=== PATIENT | female | born 1990 | race Caucasian/White ===

== ENCOUNTER → 2024-12-16 14:35 | Outpatient (REF) | payer OTHER, SELFPAY | LOC: RAD 14:35 | PROVIDERS: ATTENDING PHYSICIAN Nurse Practitioner Family; FAMILY PHYSICIAN Internal Medicine | DX: Z34.91 Encounter for supervision of normal pregnancy, unspecified, first trimester (principal) | CPT/HCPCS: 76801; 76817 ==

== ENCOUNTER → 2025-01-08 14:38 | Outpatient (REF) | payer OTHER, SELFPAY | LOC: PNTC 14:38 | PROVIDERS: ATTENDING PHYSICIAN Student in an Organized Health Care Education/Training Program | DX: Z36.0 Encounter for antenatal screening for chromosomal anomalies (principal); Z36.82 Encounter for antenatal screening for nuchal translucency | CPT/HCPCS: 76801; 76813 ==

== ENCOUNTER → 2025-02-03 14:40 | Outpatient (REF) | payer OTHER, SELFPAY | LOC: PNTC 14:40 | PROVIDERS: ATTENDING PHYSICIAN Student in an Organized Health Care Education/Training Program | DX: O09.519 Supervision of elderly primigravida, unspecified trimester (principal) | CPT/HCPCS: 76805 ==

== ENCOUNTER → 2025-02-19 14:57 | Outpatient (REF) | payer OTHER, SELFPAY ==
--- NOTE | 2025-02-16 12:41 | PN.DIAED06 ---
Meal Plan - Gestational
- Breakfast
Gestational Diabetes Meal Plan Name: 1800 calories
Breakfast - Total Carbohydrate (grams): 30 (15 grams per carb choice)
Breakfast - Starch Carbohydrate: 1
Breakfast - Fruit Carbohydrate: 0 (no fruit/juice before noon)
Breakfast - Milk Carbohydrate: 1
Breakfast - Nonstarchy Vegetables: Yes
Breakfast - Meat/Protein: 1 (1 serving = 1 oz = 28 g.)
Breakfast - Fat: 2 (portion varies per fat)
- Morning Snack
Morning Snack - Total Carbohydrate (grams): 30
Morning Snack - Starch Carbohydrate: 1
Morning Snack - Fruit Carbohydrate: 0 (no fruit/juice before noon)
Morning Snack - Milk Carbohydrate: 1
Morning Snack - Nonstarchy Vegetables: Yes
Morning Snack - Meat/Protein: 0.5
Morning Snack - Fat: 0
- Lunch
Lunch - Total Carbohydrate (grams): 45
Lunch - Starch Carbohydrate: 2
Lunch - Fruit Carbohydrate: 1
Lunch - Milk Carbohydrate: 0
Lunch - Nonstarchy Vegetables: Yes
Lunch - Meat/Protein: 2
Lunch - Fat: 1
- Afternoon Snack
Afternoon Snack - Total Carbohydrate (grams): 30
Afternoon Snack - Starch Carbohydrate: 1
Afternoon Snack - Fruit Carbohydrate: 1
Afternoon Snack - Milk Carbohydrate: 0
Afternoon Snack - Nonstarchy Vegetables: Yes
Afternoon Snack - Meat/Protein: 1
Afternoon Snack - Fat: 0
- Dinner
Dinner - Total Carbohydrate (grams): 45
Dinner - Starch Carbohydrate: 2
Dinner - Fruit Carbohydrate: 0
Dinner - Milk Carbohydrate: 1
Dinner - Nonstarchy Vegetables: Yes
Dinner - Meat/Protein: 2
Dinner - Fat: 2
- Evening Snack
Evening Snack - Total Carbohydrate (grams): 30
Evening Snack - Starch Carbohydrate: 1
Evening Snack - Fruit Carbohydrate: 0
Evening Snack - Milk Carbohydrate: 1
Evening Snack - Nonstarchy Vegetables: Yes
Evening Snack - Meat/Protein: 1
Evening Snack - Fat: 1
--- NOTE | 2025-02-19 16:08 | PN.DE ---
Diabetes Education
- -
02/19/2025 GESTATIONAL DIABETES CONSULTATION
Met with Senait and her Сергей today for medical nutrition therapy. She is G1, P0, currently at 17weeks of gestation. She states her provider ordered GSD screening early due to advanced maternal age and weight, states her BP was slightly
elevated. I explained the increased risk of pre-eclampsia, she verbalized understanding.
Explained glucose metabolism in body and what occurs during to cause increase blood sugar. Discussed importance of keeping BS well controlled to avoid complications to the baby during and after (macrosomia, hypoglycemia).
Discussed macronutrients, provided with 1800 lloyd GDM meal plan. She verbalized understanding and admits that much of her diet is high in saturated fats (ge. pizza, cheese, potato chips) but that she also likes a lot of non-starchy vegetables.
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 Encouraged her to walk after meals, especially if glucose is elevated.
Senait presented to the appointment with Contour Next test strips and lancets, I provided Countour next glucometer and lancing device. Reviewed proper testing technique, testing sites and testing pattern. She is aware to test FBS and 2 hr pp
each meal. Expected results for FBS <95 mg/dl and 2 hr pp <120 mg/dl. Noted for blood sugar of 95 mg today and had a slice of pizza at lunch. Log sheet provided for her to record results, she will send a 4-day meal log with all her FBG and 2hr Post
prandial glucose numbers to this office for review. In addition, [facility]
She was encouraged to reach out should she require insulin.
== END ==
LOC: DES 14:57
PROVIDERS: ATTENDING PHYSICIAN Student in an Organized Health Care Education/Training Program
DX: O24.419 Gestational diabetes mellitus in pregnancy, unspecified control (principal)
CPT/HCPCS: 99078

== ENCOUNTER → 2025-03-04 08:27 | Outpatient (REF) | payer OTHER, SELFPAY | LOC: DES 08:27 | PROVIDERS: ATTENDING PHYSICIAN Student in an Organized Health Care Education/Training Program | DX: O24.419 Gestational diabetes mellitus in pregnancy, unspecified control (principal) | CPT/HCPCS: 99078 ==

== ENCOUNTER → 2025-03-04 15:43 | Outpatient (REF) | payer OTHER, SELFPAY ==
--- NOTE | 2025-03-04 15:40 | PN.DE ---
Diabetes Education
- -
03/04/2025 GESTATIONAL DIABETES CONSULT
I met with Senait to review insulin administration, Novolin N Flex Pen as prescribed by her perinatologist. She states she has been following the meal plan, yet her AM fasting BS prior to prescription has been 103 mg/dL. Her 2 hour post meal
glucose numbers are within range of < 120 mg/dL. I provided a demonstration on proper insulin injection technique, discuss site rotation, reviewed proper storage and disposal (of needle). She provided a successful repeat demonstration. She
plans to discuss Dexcom CGM with her provider as her due date is late June. I explained that because this is measuring glucose from interstitial fluid the results can vary by 10% from finger stick. Advised she double check any questionable
glucose values with fingerstick, and discuss with her MD. She will contact the office with any further questions or concerns.
== END ==
LOC: PNTC 15:43
PROVIDERS: ATTENDING PHYSICIAN Student in an Organized Health Care Education/Training Program
DX: O09.519 Supervision of elderly primigravida, unspecified trimester (principal)
CPT/HCPCS: 76811; 76817

== ENCOUNTER → 2025-04-28 15:18 | Outpatient (REF) | payer OTHER, SELFPAY | LOC: PNTC 15:18 | PROVIDERS: ATTENDING PHYSICIAN Student in an Organized Health Care Education/Training Program | DX: O09.529 Supervision of elderly multigravida, unspecified trimester (principal); O99.210 Obesity complicating pregnancy, unspecified trimester | CPT/HCPCS: 76816 ==

== ENCOUNTER → 2025-05-26 14:50 | Outpatient (REF) | payer OTHER, SELFPAY | LOC: PNTC 14:50 | PROVIDERS: ATTENDING PHYSICIAN Obstetrics & Gynecology | DX: O24.414 Gestational diabetes mellitus in pregnancy, insulin controlled (principal); O09.513 Supervision of elderly primigravida, third trimester; O99.213 Obesity complicating pregnancy, third trimester | CPT/HCPCS: 76816 ==

== ENCOUNTER → 2025-05-27 10:30 | Outpatient (REF) | payer OTHER, SELFPAY | LOC: PNTC 10:30 | PROVIDERS: ATTENDING PHYSICIAN Obstetrics & Gynecology | DX: O24.414 Gestational diabetes mellitus in pregnancy, insulin controlled (principal) | CPT/HCPCS: 59025 ==

== ENCOUNTER → 2025-06-02 10:55 | Outpatient (REF) | payer OTHER, SELFPAY | LOC: PNTC 10:55 | PROVIDERS: ATTENDING PHYSICIAN Obstetrics & Gynecology | DX: O24.119 Pre-existing type 2 diabetes mellitus, in pregnancy, unspecified trimester (principal) | CPT/HCPCS: 59025; 76815 ==

== ENCOUNTER 2025-06-09 15:40 | Observation (INO) | payer OTHER, SELFPAY ==
[2025-06-09 16:26] VITALS: BP 140/79; BMI 33.5
[2025-06-09 16:29] LABS: Urine Character Clear (Clear)
[2025-06-09 16:32] LABS: Hematocrit 32.3 % (37.0-47.0); Hemoglobin 11.7 g/dL (12.0-16.0); Mean Corp Hgb Conc. 36.2 g/dL (33.0-37.0); Mean Corpuscular Volume 89.2 fL (81.0-99.0); Platelet Count 219 10^3/uL (130-400); Red Cell Dist. Width 12.2 % (11.5-14.5)
[2025-06-09 16:48] LABS: ALT (SGPT) 19 U/L (0-35); AST (SGOT) 15 U/L (14-36); Albumin 3.4 g/dl (3.5-5.0); Alkaline Phosphatase 76 U/L (38-126); Blood Urea Nitrogen 10 mg/dl (7-17); Calcium 8.8 mg/dl (8.4-10.2); Carbon Dioxide 20 mmol/L (22-30); Chloride 109 mmol/L (98-107); Estimated Creatinine Clearance > 125 ml/min; Glucose 108 mg/dl (70-99); Potassium 4.2 mmol/L (3.5-5.1); Sodium 132 mmol/L (135-145); Total Protein 6.0 g/dl (6.3-8.2); eGFR > 60.00
== END 2025-06-09 17:45 | disposition home or self-care (01) ==
LOC: PNTC-IN 15:40
PROVIDERS: ADMITTING PHYSICIAN Obstetrics & Gynecology; ATTENDING PHYSICIAN Obstetrics & Gynecology
DX: O24.414 Gestational diabetes mellitus in pregnancy, insulin controlled (principal); O09.513 Supervision of elderly primigravida, third trimester; O99.213 Obesity complicating pregnancy, third trimester; O14.03 Mild to moderate pre-eclampsia, third trimester; Z3A.34 34 weeks gestation of pregnancy; Z88.1 Allergy status to other antibiotic agents
CPT/HCPCS: 59025; 76816; 76818; 80053; 81003; 82570; 84156; 85027; G0378

== ENCOUNTER → 2025-06-11 07:51 | Outpatient (REF) | payer OTHER, SELFPAY | LOC: PNTC 07:51 | PROVIDERS: ATTENDING PHYSICIAN Obstetrics & Gynecology | DX: O13.9 Gestational [pregnancy-induced] hypertension without significant proteinuria, unspecified trimester (principal) | CPT/HCPCS: 59025 ==

== ENCOUNTER → 2025-06-15 14:50 | Outpatient (REF) | payer OTHER, SELFPAY | LOC: PNTC 14:50 | PROVIDERS: ATTENDING PHYSICIAN Obstetrics & Gynecology | DX: O24.414 Gestational diabetes mellitus in pregnancy, insulin controlled (principal); O09.513 Supervision of elderly primigravida, third trimester; O99.213 Obesity complicating pregnancy, third trimester | CPT/HCPCS: 76815 ==

== ENCOUNTER → 2025-06-18 08:11 | Outpatient (REF) | payer OTHER, SELFPAY | LOC: PNTC 08:11 | PROVIDERS: ATTENDING PHYSICIAN Obstetrics & Gynecology | DX: O13.9 Gestational [pregnancy-induced] hypertension without significant proteinuria, unspecified trimester (principal) | CPT/HCPCS: 59025 ==

== ENCOUNTER 2025-06-23 22:41 | Observation (INO) | payer OTHER, SELFPAY ==
[2025-06-23 22:52] VITALS: BMI 32.3
[2025-06-23 23:46] LABS: Hematocrit 32.0 % (37.0-47.0); Hemoglobin 11.5 g/dL (12.0-16.0); Mean Corp Hgb Conc. 35.9 g/dL (33.0-37.0); Mean Corpuscular Volume 87.4 fL (81.0-99.0); Nucleated Red Blood Cells % 0 %; Platelet Count 206 10^3/uL (130-400); Red Cell Dist. Width 12.4 % (11.5-14.5)
[2025-06-23 23:54] VITALS: BP 153/93
[2025-06-24 00:07] LABS: ALT (SGPT) 19 U/L (0-35); AST (SGOT) 15 U/L (14-36); Albumin 3.4 g/dl (3.5-5.0); Alkaline Phosphatase 82 U/L (38-126); Blood Urea Nitrogen 9 mg/dl (7-17); Calcium 9.7 mg/dl (8.4-10.2); Carbon Dioxide 20 mmol/L (22-30); Chloride 108 mmol/L (98-107); Estimated Creatinine Clearance > 125 ml/min; Glucose 125 mg/dl (70-99); Potassium 3.9 mmol/L (3.5-5.1); Sodium 132 mmol/L (135-145); Total Protein 5.8 g/dl (6.3-8.2); eGFR > 60.00
== END 2025-06-24 00:40 | disposition home or self-care (01) ==
LOC: LDRP 22:41
PROVIDERS: ADMITTING PHYSICIAN Obstetrics & Gynecology; FAMILY PHYSICIAN Internal Medicine
DX: O14.03 Mild to moderate pre-eclampsia, third trimester (principal); O24.414 Gestational diabetes mellitus in pregnancy, insulin controlled; Z3A.36 36 weeks gestation of pregnancy; K21.9 Gastro-esophageal reflux disease without esophagitis; F90.9 Attention-deficit hyperactivity disorder, unspecified type; J45.909 Unspecified asthma, uncomplicated; Z82.49 Family history of ischemic heart disease and other diseases of the circulatory system; Z80.3 Family history of malignant neoplasm of breast; Z82.62 Family history of osteoporosis; Z88.1 Allergy status to other antibiotic agents
CPT/HCPCS: 36415; 59025; 76815; 80053; 82570; 84156; 85025; 86850; 86900; 86901; G0378

== ENCOUNTER 2025-06-24 15:00 | Observation (INO) | payer OTHER, SELFPAY ==
[2025-06-24 15:09] VITALS: BP 147/84; BMI 32.3
== END 2025-06-24 16:38 | disposition home or self-care (01) ==
LOC: LDRP 15:00
PROVIDERS: ADMITTING PHYSICIAN Obstetrics & Gynecology
DX: O14.03 Mild to moderate pre-eclampsia, third trimester (principal); Z3A.36 36 weeks gestation of pregnancy
CPT/HCPCS: G0378

== ENCOUNTER → 2025-06-25 08:21 | Outpatient (REF) | payer OTHER, SELFPAY | LOC: PNTC 08:21 | PROVIDERS: ATTENDING PHYSICIAN Obstetrics & Gynecology | DX: O14.00 Mild to moderate pre-eclampsia, unspecified trimester (principal) | CPT/HCPCS: 59025 ==

== ENCOUNTER 2025-06-29 19:27 | Inpatient (IN) | payer OTHER, SELFPAY ==
[2025-06-29 19:34] VITALS: BP 147/94; BMI 33.3
[2025-06-29 19:55] LABS: Glucose - Point of Care 139 mg/dl (70-99)
[2025-06-29 20:03] LABS: Hematocrit 32.9 % (37.0-47.0); Hemoglobin 11.8 g/dL (12.0-16.0); Mean Corp Hgb Conc. 35.9 g/dL (33.0-37.0); Mean Corpuscular Volume 89.4 fL (81.0-99.0); Nucleated Red Blood Cells % 0 %; Platelet Count 229 10^3/uL (130-400); Red Cell Dist. Width 12.4 % (11.5-14.5)
[2025-06-29 20:16] LABS: ALT (SGPT) 18 U/L (0-35); AST (SGOT) 16 U/L (14-36); Albumin 3.5 g/dl (3.5-5.0); Alkaline Phosphatase 84 U/L (38-126); Blood Urea Nitrogen 12 mg/dl (7-17); Calcium 9.3 mg/dl (8.4-10.2); Carbon Dioxide 23 mmol/L (22-30); Chloride 105 mmol/L (98-107); Estimated Creatinine Clearance > 125 ml/min; Glucose 137 mg/dl (70-99); Potassium 3.8 mmol/L (3.5-5.1); Sodium 131 mmol/L (135-145); Total Protein 6.0 g/dl (6.3-8.2); eGFR > 60.00
[2025-06-29] MEDS: CYTOTEC 25 MICROGRAM VAG (20:16)
[2025-06-29] MEDS: TUMS CHEWABLE TABLET 400 MG PO (20:44)
[2025-06-29 21:04] LABS: Glucose - Point of Care 121 mg/dl (70-99)
[2025-06-29] MEDS: HUMULIN N KWIKPEN 28 UNITS SC (22:35)
[2025-06-29] MEDS: PEPCID 40 MG PO (22:35)
[2025-06-29 22:40] LABS: Glucose - Point of Care 109 mg/dl (70-99)
[2025-06-29] MEDS: LR 1000 IV (23:37)
[2025-06-30] MEDS: CYTOTEC 25 MICROGRAM PO (00:16)
[2025-06-30 02:03] LABS: Glucose - Point of Care 93 mg/dl (70-99)
[2025-06-30 06:06] LABS: Glucose - Point of Care 83 mg/dl (70-99)
[2025-06-30] MEDS: CYTOTEC PO ×2 (06:53→09:46)
[2025-06-30] MEDS: PITOCIN 30 UNITS/NSS 500 ML IV (09:46)
[2025-06-30] MEDS: LR 1000 IV (09:46)
[2025-06-30 09:58] LABS: Glucose - Point of Care 116 mg/dl (70-99)
[2025-06-30] MEDS: SUBLIMAZE 100 MCG EPIDURAL (11:52)
[2025-06-30] MEDS: FENTANYL/BUPIVACAINE 100 EPIDURAL (11:53)
[2025-06-30 14:09] LABS: Glucose - Point of Care 87 mg/dl (70-99)
[2025-06-30] MEDS: COLACE 100 MG PO (20:34)
[2025-06-30] MEDS: PEPCID 40 MG PO (20:34)
[2025-06-30] MEDS: MOTRIN 600 MG PO (21:49)
[2025-07-01] MEDS: MOTRIN 600 MG PO ×3 (04:03→20:41)
[2025-07-01 05:09] LABS: Hematocrit 31.4 % (37.0-47.0); Hemoglobin 11.2 g/dL (12.0-16.0)
[2025-07-01] MEDS: COLACE 100 MG PO ×2 (08:02→20:41)
[2025-07-01] MEDS: PRENATAL PLUS 1 TABLET PO (08:02)
[2025-07-01] MEDS: TYLENOL 650 MG PO ×2 (11:13→20:41)
[2025-07-01] MEDS: PEPCID 40 MG PO (21:06)
[2025-07-02] MEDS: TYLENOL 650 MG PO ×3 (04:55→18:21)
[2025-07-02] MEDS: MOTRIN 600 MG PO ×3 (04:56→18:22)
[2025-07-02] MEDS: COLACE 100 MG PO ×2 (07:40→20:34)
[2025-07-02] MEDS: PRENATAL PLUS 1 TABLET PO (07:40)
[2025-07-02] MEDS: PROCARDIA XL (EXTENDED RELEASE) 30 MG PO (10:50)
[2025-07-02 11:21] LABS: Hematocrit 28.6 % (37.0-47.0); Hemoglobin 10.4 g/dL (12.0-16.0); Mean Corp Hgb Conc. 36.4 g/dL (33.0-37.0); Mean Corpuscular Volume 89.7 fL (81.0-99.0); Platelet Count 198 10^3/uL (130-400); Red Cell Dist. Width 12.7 % (11.5-14.5)
[2025-07-02 11:43] LABS: ALT (SGPT) 21 U/L (0-35); AST (SGOT) 25 U/L (14-36); Albumin 3.0 g/dl (3.5-5.0); Alkaline Phosphatase 68 U/L (38-126); Blood Urea Nitrogen 9 mg/dl (7-17); Calcium 8.9 mg/dl (8.4-10.2); Carbon Dioxide 24 mmol/L (22-30); Chloride 108 mmol/L (98-107); Estimated Creatinine Clearance > 125 ml/min; Glucose 93 mg/dl (70-99); Potassium 4.2 mmol/L (3.5-5.1); Sodium 135 mmol/L (135-145); Total Protein 5.5 g/dl (6.3-8.2); eGFR > 60.00
[2025-07-02] MEDS: PEPCID 40 MG PO (22:04)
[2025-07-03] MEDS: MOTRIN 600 MG PO ×2 (01:30→07:33)
[2025-07-03] MEDS: TYLENOL 650 MG PO ×2 (01:30→07:33)
[2025-07-03] MEDS: COLACE 100 MG PO (07:33)
[2025-07-03] MEDS: PRENATAL PLUS 1 TABLET PO (07:33)
[2025-07-03] MEDS: PROCARDIA XL (EXTENDED RELEASE) 30 MG PO (07:34)
[2025-07-03 13:16] LABS: Syphilis/T. pallidum Ab Reflex Negative (Negative)
== END 2025-07-03 10:01 | disposition home or self-care (01) | DRG 807 ==
LOC: LDRP 19:27
PROVIDERS: Obstetrics & Gynecology; ADMITTING PHYSICIAN Obstetrics & Gynecology
PROC: 3E0P7VZ Introduction of Hormone into Female Reproductive, Via Natural or Artificial Opening (ICD-10-PCS; 2025-06-29)
PROC: 3E033VJ Introduction of Other Hormone into Peripheral Vein, Percutaneous Approach (ICD-10-PCS; 2025-06-30)
PROC: 0HQ9XZZ Repair Perineum Skin, External Approach (ICD-10-PCS; 2025-06-30)
PROC: 10E0XZZ Delivery of Products of Conception, External Approach (ICD-10-PCS; 2025-06-30)
DX: O14.04 Mild to moderate pre-eclampsia, complicating childbirth (principal); Z37.0 Single live birth; Z3A.37 37 weeks gestation of pregnancy; O70.0 First degree perineal laceration during delivery; K21.9 Gastro-esophageal reflux disease without esophagitis; F90.9 Attention-deficit hyperactivity disorder, unspecified type; J45.909 Unspecified asthma, uncomplicated; O76 Abnormality in fetal heart rate and rhythm complicating labor and delivery; O24.424 Gestational diabetes mellitus in childbirth, insulin controlled; O99.334 Smoking (tobacco) complicating childbirth; F17.290 Nicotine dependence, other tobacco product, uncomplicated; Z80.3 Family history of malignant neoplasm of breast; Z82.49 Family history of ischemic heart disease and other diseases of the circulatory system; Z82.62 Family history of osteoporosis; Z88.1 Allergy status to other antibiotic agents
CPT/HCPCS: 59025; 76815; 80053; 82962; 85014; 85018; 85025; 85027; 86780; 86850; 86900; 86901; 88307; 99406